=== PATIENT | female | born 1980 | race Caucasian/White ===

== ENCOUNTER 2021-01-25 15:47 | Emergency (ER) | payer MEDICAID ==
[~2021-01-25] VITALS: Ht 162.6 cm; Wt 72.7 kg
[2021-01-25 17:12] LABS: BASO # 0.01 K/mm3 (0.02-0.10); EOS # 0.01 K/mm3 (0.04-0.40); EOS % 0.1 % (1.0-5.0); HEMATOCRIT 39.9 % (37.0-47.0); HEMOGLOBIN 13.9 g/dL (12.5-16.0); LYMPH# 0.66 K/mm3 (1.50-4.00); MEAN CELL VOLUME 92 fl (78-100); MEAN CORPUSCULAR HEMOGLOBIN 32 pg (27-31); MEAN CORPUSCULAR HGB CONC 35 g/dL (33-37); MEAN PLATELET VOLUME 9.7 fl (7.4-10.4); MONO # 0.54 K/mm3 (0.20-0.80); NEU # 16.18 K/mm3 (1.40-6.50); PLATELET COUNT 388 K/mm3 (130-400); RED BLOOD COUNT 4.36 M/mm3 (4.10-5.30); RED CELL DISTRIBUTION WIDTH 12.8 % (11.5-14.5); WHITE BLOOD COUNT 17.4 K/mm3 (4.8-10.8)
[2021-01-25 17:25] LABS: ALBUMIN 3.7 g/dL (3.5-5.0)
[2021-01-25 17:26] LABS: POTASSIUM 3.6 mmol/L (3.5-5.1)
[2021-01-25 17:27] LABS: CALCIUM 8.7 mg/dL (8.3-10.5)
[2021-01-25 17:28] LABS: TOTAL PROTEIN 6.9 g/dL (6.4-8.3)
[2021-01-25 17:30] LABS: TOTAL BILIRUBIN 0.9 mg/dL (0.2-1.2)
[2021-01-25 18:00] LABS: URINE APPEARANCE HAZY; URINE COLOR YELLOW; URINE GLUCOSE NEGATIVE (NEGATIVE); URINE PROTEIN(semi-quant) TRACE mg/dL (NEGATIVE); URINE UROBILINOGEN NORMAL (NORMAL)
[2021-01-25 18:01] LABS: URINE BILIRUBIN 2+ (NEGATIVE); URINE BLOOD TRACE (NEGATIVE); URINE KETONE 2+ (NEGATIVE); URINE LEUKOCYTE ESTERASE NEGATIVE (NEGATIVE); URINE NITRATE NEGATIVE (NEGATIVE)
[2021-01-25] MEDS ORDERED: ZOFRAN ODT4 MG PO (19:09)
[2021-01-25] MEDS ORDERED: METRONIDAZOLE500 M1 PO (19:29)
[2021-01-25] MEDS ORDERED: CIPRO500 M1 PO (19:29)
[2021-01-25 19:33] VITALS: BP 140/92
== END 2021-01-25 19:49 | disposition home or self-care (01) ==
LOC: ED 15:47
PROVIDERS: Physician Assistant
DX: K52.9 Noninfective gastroenteritis and colitis, unspecified (principal); F17.200 Nicotine dependence, unspecified, uncomplicated
CPT/HCPCS: J2405; J3010; J7030; Q9967

== ENCOUNTER 2021-08-15 10:46 | Emergency (ER) | payer MEDICAID ==
[~2021-08-15 10:46] MED LIST: CIPRO500 M1 PO; METRONIDAZOLE500 M1 PO; ZOFRAN ODT4 MG PO
[2021-08-15 10:58] VITALS: BP 155/92
[2021-08-15] MEDS ORDERED: NORCO 325 MG-51 TA1 PO (15:00)
== END 2021-08-15 15:13 | disposition home or self-care (01) ==
LOC: ED 10:46
DX: M16.12 Unilateral primary osteoarthritis, left hip (principal); Z98.890 Other specified postprocedural states; Z28.310 Unvaccinated for COVID-19
CPT/HCPCS: J1885

== ENCOUNTER 2021-10-26 13:51 | Outpatient (RCR) | payer MEDICAID ==
[~2021-10-26 13:51] MED LIST changes: +NORCO 325 MG-51 TA1 PO
== END 2021-11-22 | disposition home or self-care (01) ==
LOC: PT
DX: M16.12 Unilateral primary osteoarthritis, left hip (principal)

== ENCOUNTER → 2024-01-15 | Outpatient (CLI) | payer MEDICAID | LOC: RAD 10:32 | DX: S32.502A Unspecified fracture of left pubis, initial encounter for closed fracture (principal); Z98.890 Other specified postprocedural states; Z96.642 Presence of left artificial hip joint ==